=== PATIENT | male | born 1990 | race Caucasian/White ===

== ENCOUNTER 2017-08-01 08:14 | Inpatient (IN) | payer OTHER ==
[~2017-08-01] VITALS: Ht 175.3 cm; Wt 57.2 kg
[~2017-08-01 08:14] MED LIST: ALEVE220 M1 PO; ATIVAN0.5 M1 PO; ATIVAN1 M1 PO; CEPHALEXIN500 M3 PO; FOLIC ACID 1 MG PO; FOLIC ACID1 M1 PO; LEVETIRACETAM500 M2 PO; LEXAPRO 5MG5 MG PO; MULTI-VITAMIN1 EACH PO; NALTREXONE HCL50 M1 PO; OMEPRAZOLE40 M1 PO; ONE DAILY MULT1 EAC2 PO; REMERON15 M2 PO; VITAMIN B-1100 MG PO; VITAMIN B1100 MG PO
[2017-08-01 08:44] LABS: ABSOLUTE BASOPHIL COUNT 0.1 /CUMM (0.0-0.2); ABSOLUTE EOSINOPHIL COUNT 0 /CUMM (0.0-0.7); ABSOLUTE GRANULOCYTE CT 11.6 /CUMM (1.4-6.5); ABSOLUTE MONOCYTE COUNT 0.4 /CUMM (0.10-0.60); BASOPHIL % 0.6 % (0.0-2.0); EOSINOPHIL % 0 % (0-5); MEAN CORPUSCULAR HGB 30.7 PG (27.0-31.0); MEAN CORPUSCULAR HGB CONC 34.6 G/DL (33.0-37.0); MEAN CORPUSCULAR VOLUME 88.7 FL (80.0-94.0); MEAN PLATELET VOLUME 7.2 FL (7.4-10.4); PLATELET COUNT 282 /CUMM (130-400); RBC DISTRIBUTION WIDTH 12.5 % (11.5-14.5); RED BLOOD CELL CT 5.41 /CUMM (4.70-6.10)
[2017-08-01 09:07] VITALS: BP 155/90
[2017-08-01 09:07] LABS: GRANULOCYTE % 82.9 % (42.2-75.2)
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
[2017-08-01 09:55] VITALS: BP 130/74
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
[2017-08-01 11:58] VITALS: BP 121/59
[2017-08-01 12:34] VITALS: BP 114/68
--- NOTE | 2017-08-01 14:57 | RADIOLOGY REPORT ---
EXAMINATION: XR PORTABLE CHEST CLINICAL INFORMATION: Shortness of breath. COMPARISON: Chest radiograph dated April 05, 2017. TECHNIQUE: Portable frontal view of the chest was obtained. FINDINGS: The heart is normal in size. Both lungs are clear. No pleural effusion. No pneumothorax. No acute osseous abnormality. IMPRESSION: No significant change in the appearance of the heart or lungs when compared with April 05, 2017 chest radiograph. No acute disease.
[2017-08-01 20:00] VITALS: BP 118/78
[2017-08-01 22:46] VITALS: BP 123/85
[2017-08-02 02:00] VITALS: BP 124/86
[2017-08-02 06:00] VITALS: BP 118/90
--- NOTE | 2017-08-02 07:11 | PN- Housestaff ---
Jaron LUIS,[facility] 08/02/17 0711: Subjective Follow-up For: Alcohol Detox Subjective: Patient was seen and examined at bedside. Review of Systems Constitutional: Reports: no symptoms. Objective Last 24 Hrs of Vital Signs/I&O Vital Signs Date Time Temp Pulse Resp B/P B/P Pulse O2 O2 Flow FiO2 Mean Ox Delivery Rate 08/02 1347 98.6 103 20 120/88 96 Room Air 08/02 1006 96 120/80 08/02 0600 97.7 68 18 118/90 96 08/02 0200 97.6 88 18 124/86 98 08/01 2246 97.4 88 18 123/85 99 Room Air 08/01 2000 98.2 100 18 118/78 94 Room Air 08/01 1451 97.5 Intake & Output 08/02 1600 08/02 0800 08/02 0000 Intake Total 240 875 Output Total 600 Balance -360 875 Intake, IV 675 Intake, Oral 240 200 Number 0 0 Bowel Movements Output, Urine 600 Patient 126 lb Weight Weight Bed scale Measurement Method Physical Exam General Appearance: Alert, Oriented X3, Cooperative, No Acute Distress Skin: No Rashes, No Breakdown Skin Temp/Moisture Exam: Warm/Dry Sepsis Skin Exam (color): Normal for Ethnicity HEENT: Atraumatic Cardiovascular: Normal S1, Normal S2, No Murmurs Lungs: Clear to Auscultation, Normal Air Movement Abdomen: Soft, No Tenderness Neurological: Normal Speech Extremities: No Edema Assessment/Plan Assessment: 27 yo M with PMH significant for alcohol abuse and multiple detoxifications in the past presented to [facility] requesting detox. Assessment: Alcohol Detox Osmolar gap with anion gap - resolved Abnormal LFT's Plan: * Continue Ativan 2mg q6 per CIWA * Continue IV thiamine * PO folic acid and multivitamins * Replete electrolytes as needed. * GI prophylaxis with PPI. Patient currently has a poor oral intake currently. * His repeat CXR is unremarkable. No signs of aspiration. * Patient was complaining earlier of a burning sensation in his throat. He was given Maalox. patient reports significant improvement in his symptoms. * His anion gap has resolved. * His total bilirubin has increased from yesterday. Will monitor his LFTs for now. If no improvement may require RUQ ultrasound. * Would repeat hepatitis panel. His LFTs were normal in Nov. His hepatitis panel was also negative at that time. * Diet: regular * DVT Prophylaxis: SC Lovenox * Code: Full Code Problem List: 1. EtOH dependence Pain Ratin Pain Location: none Pain Goal: Remain pain free Pain Plan: none Tomorrow's Labs & Rationales: CBC, BEP Arnold Magana 08/02/17 1122: Attending MD Review Statement Attending Statement Attending MD Statement: examined this patient, discuss w/resident/PA/HEALTHCARE PROF, agreed w/resident/PA/HEALTHCARE PROF, discussed with family, reviewed EMR data (avail), discussed with nursing, discussed with case mgmt, reviewed images, amended to note Attending Assessment/Plan: 27 o/m with pmh of alcohol abuse comes with alcohol withdrawal. Patient c/o chest pain this am. Patient EKG with no acute changes. Chest xray f/u. Patient is on CIWA protocol. Patient is receiving ativan as per taper. Continue thiamine , folic acid. clonidine prn for bp control. Maalox prn for gastritis. Monitor hemodynamics. cont current care...
[2017-08-02 08:05] LABS: ABSOLUTE BASOPHIL COUNT 0 /CUMM (0.0-0.2); ABSOLUTE GRANULOCYTE CT 2.9 /CUMM (1.4-6.5); MEAN PLATELET VOLUME 7.9 FL (7.4-10.4); RBC DISTRIBUTION WIDTH 12.4 % (11.5-14.5); RED BLOOD CELL CT 4.54 /CUMM (4.70-6.10)
[2017-08-02 08:52] LABS: ABSOLUTE EOSINOPHIL COUNT 0 /CUMM (0.0-0.7); ABSOLUTE LYMPH COUNT 1.3 /CUMM (1.2-3.4); ABSOLUTE MONOCYTE COUNT 0.4 /CUMM (0.10-0.60); BASOPHIL % 0.2 % (0.0-2.0); GRANULOCYTE % 63.2 % (42.2-75.2); MEAN CORPUSCULAR HGB 30.9 PG (27.0-31.0); MEAN CORPUSCULAR HGB CONC 34.2 G/DL (33.0-37.0); MEAN CORPUSCULAR VOLUME 90.4 FL (80.0-94.0); PLATELET COUNT 165 /CUMM (130-400)
[2017-08-02 08:53] LABS: HEMATOCRIT 41.1 % (42-52); WHITE BLOOD CELL COUNT 4.6 /CUMM (4.8-10.8)
[2017-08-02 10:06] VITALS: BP 120/80
--- NOTE | 2017-08-02 12:15 | RADIOLOGY REPORT ---
EXAMINATION: XR CHEST CLINICAL INFORMATION: Shortness of breath. Presumptive diagnosis of aspiration pneumonia. COMPARISON: Multiple prior chest x-rays, status post recent of which is dated 08/01/2017. TECHNIQUE: AP portable upright and lateral views of the chest were obtained. FINDINGS: The cardiomediastinal silhouette is within normal limits in size. Lungs bilaterally are symmetrically expanded and clear. No focal consolidation, effusion or pneumothorax is seen. Bony structures are unremarkable. IMPRESSION: Unremarkable examination. No focal lung consolidation seen.
[2017-08-02 13:47] VITALS: BP 120/88
--- NOTE | 2017-08-02 17:03 | Patient Discharge Instructions ---
Discharge Instructions General Discharge Information You were seen/treated for: Alcohol Detoxification Special Instructions: Please follow up with your primary care physician within one week of discharge. Diet Continue normal diet: Yes Activity Full Activity/No Limits: Yes Acute Coronary Syndrome Inclusion Criteria At DC or during hospital stay patient has or had the following: ACS DIAGNOSIS No Discharge Core Measures Meds if any: Prescribed or Continued at Discharge Meds if any: NOT Prescribed or Continued at Discharge Congestive Heart Failure Inclusion Criteria At DC or during hospital stay patient has or had the following: CHF DIAGNOSIS No Discharge Core Measures Meds if any: Prescribed or Continued at Discharge Meds if any: NOT Prescribed or Continued at Discharge Cerebrovascular accident Inclusion Criteria At DC or during hospital stay patient has or had the following: CVA/TIA Diagnosis No Discharge Core Measures Meds if any: Prescribed or Continued at Discharge Meds if any: NOT Prescribed or Continued at Discharge Venous thromboembolism Inclusion Criteria VTE Diagnosis No VTE Type NONE VTE Confirmed by (Test) NONE Discharge Core Measures - Per Current guidelines, there needs to be overlap - treatment for the first 5 days of Warfarin therapy. - If discharged on Warfarin prior to 5 days of - overlap therapy, the patient will need to be - assessed for post discharge needs including - *Post discharge parental anticoagulation - *Warfarin and/or parental anticoagulation education - *Follow up date to check INR post discharge At least 5 days overlap therapy as Inpatient No Meds if any: Prescribed or Continued at Discharge Note: Overlap Therapy is Warfarin and Anticoagulant Meds if any: NOT Prescribed or Continued at Discharge
[2017-08-02 21:29] VITALS: BP 138/80
[2017-08-02 22:00] VITALS: BP 138/80
--- NOTE | 2017-08-03 05:42 | PN- Housestaff ---
See Addendum Subjective Follow-up For: Alcohol Detox Subjective: Patient visited today, was lying in bed comfortably in no acute distress, was alert and oriented. No fever or chills, no shortness of breathing, no chest pain, no other events. Had some concerns regarding losing job and requested for help, informed we can provide notes documenting admission from medical point, our team members from case management and social consult will be also involved in management. CIWA 0-5 recieved 0 IV, but standing 2mg q6 Review of Systems Constitutional: Reports: see HPI. Objective Last 24 Hrs of Vital Signs/I&O Vital Signs Date Time Temp Pulse Resp B/P B/P Pulse O2 O2 Flow FiO2 Mean Ox Delivery Rate 08/03 0552 98.0 88 20 122/86 98 Room Air 08/02 2200 98.1 94 20 138/80 08/02 2129 98.1 94 20 138/80 97 Room Air 08/02 1347 98.6 103 20 120/88 96 Room Air 08/02 1006 96 120/80 Intake & Output 08/03 1600 08/03 0800 08/03 0000 Intake Total 240 300 Output Total Balance 240 300 Intake, Oral 240 300 Physical Exam General Appearance: Alert, Oriented X3, Cooperative, No Acute Distress Skin: No Significant Lesion Skin Temp/Moisture Exam: Warm/Dry Sepsis Skin Exam (color): Normal for Ethnicity HEENT: Atraumatic, EOMI, Mucous Membr. moist/pink Cardiovascular: Normal S1, Normal S2 Lungs: Clear to Auscultation, Normal Air Movement Neurological: Normal Speech, Strength at 5/5 X4 Ext, mild tremor Extremities: No Edema Current Medications: Current Medications Sig/Mayra Start time Last Medication Dose Route Stop Time Status Admin Acetaminophen 325 MG ONCE ONE 08/02 2199 DC 08/02 PO 08/02 220 2242 Al Hydroxide/Mg 30 ML ONCE ONE 08/02 1030 DC 08/02 Hydroxide PO 08/02 1031 1035 Al Hydroxide/Mg 30 ML .STK-MED ONE 08/02 1024 DC Hydroxide PO 08/02 1025 Enoxaparin Sodium 40 MG DAILY 08/01 1041 AC 08/03 SC 0803 Folic Acid 1 MG DAILY 08/02 1000 AC 08/03 PO 08/04 1001 0803 Lorazepam 2 MG Q6 08/01 2359 AC 03/10 PO 0525 Lorazepam 0 Q1P PRN 08/01 2300 AC 08/02 IV 0920 Magnesium Sulfate 1 GM ONCE ONE 08/02 0845 DC 08/02 Dextrose/Water 100 ML IV 08/02 1244 0921 Multivitamins 1 TAB DAILY 08/02 1000 AC 08/03 PO 0803 Omeprazole 40 MG DAILY AC 08/02 1017 AC 08/02 PO 1035 Omeprazole 40 MG DAILY AC 08/02 0700 AC 08/03 PO 0525 Potassium Chloride 20 MEQ ONCE ONE 08/02 1000 DC 08/02 PO 08/02 1001 0922 Last 24 Hrs of Lab/Grupo Results Last 24 Hrs of Labs/Mics: Laboratory Tests 08/03/17 0640: Sodium Pending, Potassium Pending, Chloride Pending, Carbon Dioxide Pending, Anion Gap Pending, BUN Pending, Creatinine Pending, BUN/Creatinine Ratio Pending , Magnesium Pending, Total Bilirubin Pending, Direct Bilirubin Pending, AST Pending, ALT Pending, Alkaline Phosphatase Pending, Total Protein Pending, Albumin Pending, CBC w Diff Pending, WBC Pending, RBC Pending, Hgb Pending, Hct Pending, MCV Pending, MCH Pending, MCHC Pending, RDW Pending, Plt Count Pending, MPV Pending, Hepatitis A IgM Ab Pending, Hep Bs Antigen Pending, Hep B Core IgM Ab Conf Pending, Hepatitis C Antibody Pending Assessment/Plan Assessment: 27 yo M with PMH significant for alcohol abuse and multiple detoxifications in the past presented to [facility] requesting detox. Assessment: Alcohol Detox Osmolar gap with anion gap - resolved Abnormal LFT's Over 24hours: CIWA 0-5 recieved 0 IV, but standing 2mg q6 Plan: * Consider taper Ativan 2mg q6 per CIWA * Continue IV thiamine * PO folic acid and multivitamins * Replete electrolytes as needed. * GI prophylaxis with PPI. Patient currently has a poor oral intake currently. * His repeat CXR is unremarkable. No signs of aspiration. * Patient was complaining earlier of a burning sensation in his throat. He was given Maalox. patient reports significant improvement in his symptoms. * His anion gap has resolved. * His total bilirubin has increased from yesterday. Will monitor his LFTs for now. If no improvement may require RUQ ultrasound. * Would repeat hepatitis panel. His LFTs were normal in Mar. His hepatitis panel was also negative at that time. * social work and case management consult regarding help with job * Diet: regular * DVT Prophylaxis: SC Lovenox * Code: Full Code Problem List: 1. ETOH abuse 2. Alcohol intoxication Pain Ratin Pain Location: None Pain Goal: Pain 4 or less Pain Plan: continue current plan Tomorrow's Labs & Rationales: BEP
[2017-08-03 05:52] VITALS: BP 122/86
[2017-08-03 08:45] LABS: ABSOLUTE BASOPHIL COUNT 0 /CUMM (0.0-0.2); ABSOLUTE EOSINOPHIL COUNT 0.1 /CUMM (0.0-0.7); ABSOLUTE GRANULOCYTE CT 3.2 /CUMM (1.4-6.5); ABSOLUTE LYMPH COUNT 1.8 /CUMM (1.2-3.4); ABSOLUTE MONOCYTE COUNT 0.4 /CUMM (0.10-0.60); BASOPHIL % 0.3 % (0.0-2.0); EOSINOPHIL % 1.7 % (0-5); GRANULOCYTE % 58.1 % (42.2-75.2); MEAN CORPUSCULAR HGB 30.8 PG (27.0-31.0); MEAN CORPUSCULAR HGB CONC 34.3 G/DL (33.0-37.0); MEAN PLATELET VOLUME 8.6 FL (7.4-10.4); PLATELET COUNT 180 /CUMM (130-400); RBC DISTRIBUTION WIDTH 12.3 % (11.5-14.5); WHITE BLOOD CELL COUNT 5.5 /CUMM (4.8-10.8)
[2017-08-03 09:55] LABS: HEMATOCRIT 47.7 % (42-52)
[2017-08-03 11:46] VITALS: BP 120/82
[2017-08-03 19:04] VITALS: BP 110/70
[2017-08-03 22:22] VITALS: BP 132/90
[2017-08-04 06:52] VITALS: BP 96/70
--- NOTE | 2017-08-04 08:05 | PN- Housestaff ---
[facility]: Subjective Follow-up For: Alcohol Detox Subjective: Patient was seen and examined this morning. Reports doing okay. States he had vivid dreams last night. Otherwise, offers no complaints. No acute events overnight. Review of Systems Constitutional: Reports: no symptoms. Objective Last 24 Hrs of Vital Signs/I&O Vital Signs Date Time Temp Pulse Resp B/P B/P Pulse O2 O2 Flow FiO2 Mean Ox Delivery Rate 08/04 0652 97.6 89 20 96/70 95 Room Air 08/03 2222 98.0 110 18 132/90 97 Room Air 08/03 1904 98.0 98 18 110/70 97 Room Air 08/03 1511 92 Intake & Output 08/04 1600 08/04 0800 08/04 0000 Intake Total 450 Output Total Balance 450 Intake, Oral 450 Physical Exam General Appearance: Alert, Oriented X3, Cooperative, Mild Distress Skin: No Rashes, No Breakdown Skin Temp/Moisture Exam: Warm/Dry Sepsis Skin Exam (color): Normal for Ethnicity HEENT: Atraumatic Cardiovascular: Normal S1, Normal S2, No Murmurs Lungs: Clear to Auscultation, Normal Air Movement Abdomen: Soft, No Tenderness Neurological: Normal Speech Extremities: No Edema Assessment/Plan Assessment: 27 yo M with PMH significant for alcohol abuse and multiple detoxifications in the past presented to [facility] requesting detox. Assessment: Alcohol Detox Osmolar gap with anion gap - resolved Abnormal LFT's Over 24hours: CIWA 3 recieved 0 IV, but standing 2mg q6 Plan: * Will taper PO Ativan to 2mg q8. * PO thiamine, folic acid and multivitamins * Replete electrolytes as needed. * GI prophylaxis with PPI. . * His LFTs are improving. No need to further monitor. * Hepatitis panel - normal * social work and case management consult regarding help with job * Diet: regular * DVT Prophylaxis: SC Lovenox * Code: Full Code Problem List: 1. Alcohol withdrawal Pain Ratin Pain Location: none Pain Goal: Remain pain free Pain Plan: none Tomorrow's Labs & Rationales: BEP, Mg Arnold Magana 08/04/17 1023: Attending MD Review Statement Attending Statement Attending MD Statement: examined this patient, discuss w/resident/PA/A CLASS LINEMAN, agreed w/resident/PA/A CLASS LINEMAN, discussed with family, reviewed EMR data (avail), discussed with nursing, discussed with case mgmt, reviewed images, amended to note Attending Assessment/Plan: 27 o/m with pmh of alcohol abuse comes with alcohol withdrawal. Patient was agitated overnight. CIWA 4. Patient is on CIWA protocol. Patient is receiving ativan as per taper. Continue thiamine, folic acid. clonidine prn for bp control. Maalox prn for gastritis. Monitor hemodynamics. cont current care...
[2017-08-04 14:58] VITALS: BP 124/72
--- NOTE | 2017-08-04 16:56 | Discharge Summary ---
Visit Information Visit Dates Admission Date: 08/01/17 Hospital Course Course Attending Physician: Arnold Magana MD Primary Care Physician: Patient Has No Primary Care Allergies: Coded Allergies: No Known Allergies (08/01/17) Discharge Instructions General Discharge Information Code Status: Full Code Patient's Diet: Regular Patient's Activity: As tolerated Medications at Discharge Discharge Medications: Continue taking these medications: Multivitamin (One Daily Multivitamin) 1 EACH TABLET 1 Tablet ORAL DAILY Qty = 30 Instructions: . Comments: Last Taken: 04/10/17 Time: 9 AM Folic Acid (Folic Acid) 1 MG TABLET 1 Tablet ORAL DAILY Qty = 30 Instructions: . Comments: Last Taken: 04/10/17 Time: 9 AM Omeprazole (Omeprazole) 40 MG CAPSULE. 1 Capsule ORAL DAILY Qty = 30 Instructions: . Comments: Last Taken: 04/10/17 Time: 6 AM
[2017-08-04 22:08] VITALS: BP 138/80
[2017-08-05 06:26] VITALS: BP 107/77
--- NOTE | 2017-08-05 09:11 | PN- Housestaff ---
Jaron LUIS,[facility] 08/05/17 0911: Subjective Follow-up For: Alcohol Detox Subjective: Patient was seen and examined at bedside. He reports feeling weak. Wasn't able to sleep well much last night. Denies any other symptoms. Offers no other complaints. Review of Systems Constitutional: Reports: weakness. Objective Last 24 Hrs of Vital Signs/I&O Vital Signs Date Time Temp Pulse Resp B/P B/P Pulse O2 O2 Flow FiO2 Mean Ox Delivery Rate 08/05 0626 97.9 90 16 107/77 99 Room Air 08/04 2208 98.1 88 18 138/80 98 Room Air 08/04 1458 98.0 116 18 124/72 98 Physical Exam General Appearance: Alert, Oriented X3, Cooperative, Mild Distress Skin: No Rashes, No Breakdown Skin Temp/Moisture Exam: Warm/Dry Sepsis Skin Exam (color): Normal for Ethnicity HEENT: Atraumatic Cardiovascular: Normal S1, Normal S2, No Murmurs Lungs: Clear to Auscultation, Normal Air Movement Abdomen: Soft, No Tenderness Neurological: Normal Speech Extremities: No Edema Assessment/Plan Assessment: 27 yo M with PMH significant for alcohol abuse and multiple detoxifications in the past presented to [facility] requesting detox. Assessment: Alcohol Detox Osmolar gap with anion gap - resolved Abnormal LFT's - improving. Over 24hours: CIWA 2-3 over the past 24 hours. recieved 0 IV, but standing 2mg q8 Plan: * Will taper PO Ativan to 2mg q12. He has been doing reasonably well. * PO thiamine, folic acid and multivitamins * Encourage PO intake. * Replete electrolytes as needed. * GI prophylaxis with PPI. . * His LFTs do not require any further monitoring. * Hepatitis panel - normal * social work and case management consult regarding help with job and post discharge planning s/p alcohol detox. * Can likely be discharged tomorrow. * Diet: regular * DVT Prophylaxis: SC Lovenox * Code: Full Code Problem List: 1. EtOH dependence Pain Ratin Pain Location: none Pain Goal: Remain pain free Pain Plan: none Tomorrow's Labs & Rationales: CBC IzzyArnold 08/05/17 1126: Attending Review Statement Attending Statement Attending MD Statement: examined this patient, discuss w/resident/PA/FIG CAPRIFIER, agreed w/resident/PA/FIG CAPRIFIER, discussed with family, reviewed EMR data (avail), discussed with nursing, discussed with case mgmt, reviewed images, amended to note Attending Assessment/Plan: 27 o/m with pmh of alcohol abuse comes with alcohol withdrawal. Patient was agitated overnight. CIWA 10. Patient is on CIWA protocol. Patient is receiving ativan as per taper. Continue thiamine, folic acid. Maalox prn for gastritis. Monitor hemodynamics. SW consult. cont current care...
[2017-08-05 14:20] VITALS: BP 142/86
[2017-08-05 14:45] VITALS: BP 118/72
[2017-08-05 15:00] VITALS: BP 118/72
[2017-08-05 16:00] VITALS: BP 118/72
[2017-08-05 21:45] VITALS: BP 120/82
[2017-08-06] VITALS: BP 120/82
[2017-08-06 02:00] VITALS: BP 120/82
--- NOTE | 2017-08-06 07:05 | PN- Housestaff ---
Jaron LUIS,[facility] 08/06/17 0705: Subjective Follow-up For: Alcohol Detox Subjective: Patient was seen and examined at bedside. He states that last night he felt a lot of anxiety again. He feels the Ativan helps him more than the Librium but the ativan tends to have its effect for a shorter duration. Review of Systems Constitutional: Reports: no symptoms. Objective Last 24 Hrs of Vital Signs/I&O Vital Signs Date Time Temp Pulse Resp B/P B/P Pulse O2 O2 Flow FiO2 Mean Ox Delivery Rate 08/06 0713 97.3 79 18 124/78 100 08/06 0200 97.8 98 18 120/82 08/06 0000 97.8 98 18 120/82 08/05 2145 97.8 98 18 120/82 98 Room Air 08/05 1600 98 20 118/72 08/05 1500 98 18 118/72 08/05 1445 98 18 118/72 98 Room Air 08/05 1420 98.5 133 22 142/86 98 Room Air Intake & Output 08/06 1600 08/06 0800 08/06 0000 Intake Total 480 970 Output Total Balance 480 970 Intake, IV 10 Intake, Oral 480 960 Physical Exam General Appearance: Alert, Oriented X3, Cooperative, Mild Distress Skin: No Rashes, No Breakdown Skin Temp/Moisture Exam: Warm/Dry Sepsis Skin Exam (color): Normal for Ethnicity HEENT: Atraumatic Cardiovascular: Normal S1, Normal S2 Lungs: Clear to Auscultation, Normal Air Movement Abdomen: Soft, No Tenderness Neurological: Normal Speech Extremities: No Edema Assessment/Plan Assessment: 27 yo M with PMH significant for alcohol abuse and multiple detoxifications in the past presented to [facility] requesting detox. Assessment: Alcohol Detox Osmolar gap with anion gap - resolved Abnormal LFT's - improving. Over 24hours: CIWA 3 over the past 24 hours. Plan: * Will discontinue benzodiazepines. Can be observed off it. * Continue PO thiamine, folic acid and multivitamins * Replete electrolytes as needed. * psych consult. * GI prophylaxis with PPI. * His LFTs do not require any further monitoring. * Hepatitis panel - normal * social work and case management consult regarding help with job and post discharge planning s/p alcohol detox. * Can likely be discharged tomorrow. * Diet: regular * DVT Prophylaxis: SC Lovenox * Code: Full Code Problem List: 1. EtOH dependence Pain Ratin Pain Location: none Pain Goal: Remain pain free Pain Plan: none Tomorrow's Labs & Rationales: BEP, Arnold Magana 08/06/17 0932: Attending MD Review Statement Attending Statement Attending MD Statement: examined this patient, discuss w/resident/PA/FOOD PRODUCTION ASSOCIATE, agreed w/resident/PA/FOOD PRODUCTION ASSOCIATE, discussed with family, reviewed EMR data (avail), discussed with nursing, discussed with case mgmt, reviewed images, amended to note Attending Assessment/Plan: 27 o/m with pmh of alcohol abuse comes with alcohol withdrawal. Patient is calm this am. Patient is on CIWA protocol. Patient is receiving ativan prn. Continue thiamine, folic acid. Maalox prn for gastritis. Monitor hemodynamics. SW consult. Discharge planning soon.
[2017-08-06 07:13] VITALS: BP 124/78
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
[2017-08-06 15:27] VITALS: BP 121/70
[2017-08-06 22:57] VITALS: BP 1321/73
[2017-08-06 23:10] VITALS: BP 132/73
[2017-08-07 06:50] VITALS: BP 110/65
--- NOTE | 2017-08-07 07:01 | PN- Housestaff ---
Subjective Follow-up For: Alcohol Detox Subjective: Patient was seen and examined at bedside. He reports feeling well today and is ready to go home. Offers no complaints. ciwa 2 Review of Systems Constitutional: Reports: no symptoms. Objective Last 24 Hrs of Vital Signs/I&O Vital Signs Date Time Temp Pulse Resp B/P B/P Pulse O2 O2 Flow FiO2 Mean Ox Delivery Rate 08/07 0650 97.8 65 18 110/65 97 Room Air 08/06 2310 98.3 90 20 132/73 98 Room Air 08/06 1527 97.4 92 18 121/70 99 Room Air Intake & Output 08/07 0800 08/07 0000 08/06 1600 Intake Total 237 531 1762 Output Total Balance 157 698 5181 Intake, IV 20 10 0 Intake, Oral 276 677 4179 Number 0 0 0 Bowel Movements Patient 126 lb Weight Physical Exam General Appearance: Alert, Oriented X3, Cooperative, No Acute Distress Skin: No Rashes, No Breakdown Skin Temp/Moisture Exam: Warm/Dry Sepsis Skin Exam (color): Normal for Ethnicity HEENT: Atraumatic Cardiovascular: Normal S1, Normal S2, No Murmurs Lungs: Clear to Auscultation, Normal Air Movement Abdomen: Soft, No Tenderness Neurological: Normal Speech Extremities: No Edema Assessment/Plan Assessment: 27 yo M with PMH significant for alcohol abuse and multiple detoxifications in the past presented to [facility] requesting detox. Assessment: Alcohol Detox Osmolar gap with anion gap - resolved Abnormal LFT's - improving. Plan: * Patient is stable for discharge. * He can continue PO thiamine, folic acid and multivitamins at home. * Replete electrolytes as needed. * Patient states he was on some medication for anxiety which was started by his PCP which he has stopped taking. Advised to follow up with his PCP. * GI prophylaxis with PPI. * Hepatitis panel - normal * Diet: regular * DVT Prophylaxis: SC Lovenox * Code: Full Code Problem List: 1. EtOH dependence Pain Ratin Pain Location: none Pain Goal: Remain pain free Pain Plan: none Tomorrow's Labs & Rationales: none none Pain Goal: Remain pain free Pain Plan: none
== END 2017-08-07 10:55 | DRG 897 ==
LOC: ERH 08:14 → ERHI 10:07 → 2NB 10:07 → ENRESERV 10:53 → ENTRNSPT 12:10 → EDTRNSPTSTS 12:15 → EDTRNSPT 12:15 → 2NB 12:26 → CMPTRNSPT 12:37 → ENPENDDIS 08-07 09:16 → 2NB 08-07 10:55
PROVIDERS: Internal Medicine; Physician Assistant Medical
DX: F10.239 Alcohol dependence with withdrawal, unspecified (principal); F11.11 Opioid abuse, in remission; E87.2 Acidosis; J45.909 Unspecified asthma, uncomplicated; Z87.820 Personal history of traumatic brain injury; M54.9 Dorsalgia, unspecified; R74.0 Nonspecific elevation of levels of transaminase and lactic acid dehydrogenase [LDH]
CPT/HCPCS: 2NBSP; 36592; 71045; 71046; 80307; 81001; 82436; 83010; 83491; 87086; 93005; 93010; 96361; 96374; 96375; 99291; G0480; J1650; J2405; J3490; J7042; J7060